=== PATIENT | female | born 1990 | race Two or more races ===

== ENCOUNTER 2020-06-24 12:08 | Emergency (ER) | payer MEDICAID, OTHER ==
[~2020-06-24] VITALS: Ht 152.4 cm; Wt 56.7 kg
[2020-06-24 12:17] VITALS: BP 108/66
[2020-06-24 13:14] LABS: Basophils # (auto) 0 10 ^3/uL (0-0.2); Basophils % (auto) 0.3 % (0.0-2.0); Eosinophils # (auto) 0 10 ^3/uL (0-0.8); Eosinophils % (auto) 0.3 % (0.0-7.0); Hematocrit 39.4 % (36.0-46.0); Hemoglobin 12.7 g/dL (12.2-16.2); Lymphocytes # (auto) 2.2 10 ^3/uL (0.4-5.4); Lymphocytes % (auto) 29.3 % (10.0-50.0); Mean Corpuscular Hemoglobin 29.5 pg (28.0-32.0); Mean Corpuscular Hgb Conc. 32.3 g/dL (32.0-36.0); Mean Corpuscular Volume 91.3 fL (80.0-100.0); Monocytes # (auto) 0.5 10 ^3/uL (0-1.3); Monocytes % (auto) 7.1 % (0.0-12.0); Neutrophils # (auto) 4.8 10 ^3/uL (1.6-8.6); Platelet Count (auto) 305 10^3/uL (140-450); Red Blood Cells 4.32 10^6/uL (4.0-5.20); Red Cell Distribution Width 14.1 % (11.8-14.3); White Blood Cell 7.5 10^3/uL (4.4-10.8)
[2020-06-24 13:21] LABS: Urine Bacteria NONE SEEN /hpf (None Seen); Urine Blood Negative /uL (Negative); Urine Specific Gravity 1.003 (1.001-1.035); Urine WBC 1 /hpf (0 - 5)
== END 2020-06-24 15:15 | disposition home or self-care (01) ==
LOC: ER 12:08
DX: O20.0 Threatened abortion (principal); Z3A.01 Less than 8 weeks gestation of pregnancy
CPT/HCPCS: 36415; 76801; 81001; 84702; 85025